=== PATIENT | male | born 1985 | race Caucasian/White ===

== ENCOUNTER → 2016-05-13 | Outpatient (CLI) | payer OTHER ==
--- NOTE | 2016-05-13 12:16 | KCIC ---
Chest PA and lateral Indication: Cough for 6 weeks. Time of exam 12:06 p.m. The lungs do show some hyperinflation. The heart size is normal. The lungs are clear. The pulmonary vascularity is normal. No effusion or pneumothorax is seen. Impression: No acute cardiopulmonary process is detected. Electronically signed by: Brian Traylor MD (May 13, 2016 12:15:05)
== END | disposition home or self-care (01) ==
LOC: KCIC 11:51
PROVIDERS: ATTEND Nurse Practitioner Family
DX: R05 Cough (principal)
CPT/HCPCS: 71020